=== PATIENT | male | born 1950 | race Caucasian/White ===

== ENCOUNTER 2020-07-05 02:43 | Emergency (ER) | payer MEDICARE ==
[~2020-07-05] VITALS: Ht 175.3 cm; Wt 89.8 kg
[~2020-07-05 02:43] MED LIST: ATEN25 PO; CEPH500 PO; HYDCHL25 PO; OXYC5 PO; ROSU5 PO
[2020-07-05 03:13] LABS: BASOPHILS ABSOLUTE AUTO 0.05 K/mm3 (0.00-0.23); BASOPHILS PERCENT AUTO 0 % (0-2); EOSINOPHILS ABSOLUTE AUTO 0.01 K/mm3 (0.00-0.68); EOSINOPHILS PERCENT AUTO 0 % (0-6); Hematocrit 45.4 % (37.0-53.0); IMMATURE GRAN ABSOLUTE AUTO 0.07 K/mm3 (0.00-0.10); IMMATURE GRAN PERCENT AUTO 0 % (0-1); LYMPHOCYTES ABSOLUTE AUTO 1.59 K/mm3 (0.84-5.20); LYMPHOCYTES PERCENT AUTO 10 % (21-46); MONOCYTES ABSOLUTE AUTO 0.76 K/mm3 (0.16-1.47); MONOCYTES PERCENT AUTO 5 % (4-13); Mean Corpuscular Volume 91 fL (80-100); Mean Platelet Volume 11.2 fL (9.1-12.4); NEUTROPHILS ABSOLUTE AUTO 13.24 K/mm3 (1.96-9.15); NEUTROPHILS PERCENT AUTO 84 % (41-73); Platelet Count 241 K/mm3 (150-400); RDW Coefficient Variation 14.6 % (11.7-14.2); RDW Standard Deviation 48.8 fL (35.1-46.3); White Blood Cell Count 15.72 K/mm3 (4.00-11.30)
[2020-07-05] MEDS ORDERED: Aspir 8181 MG PO (03:31)
[2020-07-05] MEDS ORDERED: ATOR20 PO (03:31)
[2020-07-05] MEDS ORDERED: TELMISARTAN-HC1 EAC4 PO (03:32)
[2020-07-05] MEDS ORDERED: ALLO300 PO (03:32)
[2020-07-05] MEDS ORDERED: Isosorbide Mono30 MG PO (03:32)
[2020-07-05] MEDS ORDERED: OMEP20ER PO (03:32)
[2020-07-05] MEDS ORDERED: NEBI5 PO (03:33)
[2020-07-05] MEDS ORDERED: Vitamin B-121000 MCG PO (03:33)
[2020-07-05 03:34] LABS: Albumin, Blood 4.1 g/dL (3.4-5.0); Albumin/Globulin Ratio 1.2 (0.8-1.8); Bilirubin, Total 0.4 mg/dL (0.1-1.0); Bun/Creatinine Ratio 16.5 (12.0-20.0); Calcium, Blood 9.8 mg/dL (8.5-10.1); Creatinine, Blood 1.7 mg/dL (0.60-1.20); Globulin, Blood 3.3 g/dL (2.2-4.0); Potassium, Blood 4.5 mmol/L (3.5-5.5); Total Protein, Blood 7.4 g/dL (6.4-8.2)
[2020-07-05 04:44] LABS: Source, Urine Clean Catch
[2020-07-05 04:47] LABS: Bilirubin, Urine Neg (Neg); Blood, Urine 5+ (Neg); Glucose Qualitative, Urine Neg (Neg); Ketones, Urine 2+ (Neg); Leukocyte Esterase, Urine Neg (Neg); Nitrite, Urine Neg (Neg); Protein, Urine 1+ (Neg); Urobilinogen, Urine NORM (Normal)
[2020-07-05 04:50] LABS: Appearance, Urine Clear (Clear); Color, Urine Yellow (P-Yellow)
[2020-07-05 04:53] LABS: White Blood Cells, Urine 0-2 /hpf (0-5)
[2020-07-05 04:54] LABS: Bacteria Few /hpf; Squamous Epithelial Cells Not Seen /hpf (Few)
[2020-07-05] MEDS ORDERED: TAMS.4ER PO (05:00)
[2020-07-05] MEDS ORDERED: OXYACE7.5T PO (05:00)
[2020-07-05] MEDS ORDERED: CEPH500 PO (05:02)
== END 2020-07-05 05:20 | disposition home or self-care (01) ==
LOC: ER 02:43
PROVIDERS: Emergency Medicine
DX: N13.2 Hydronephrosis with renal and ureteral calculous obstruction (principal)
CPT/HCPCS: 36415; 74177; 80053; 81001; 83690; 85025; 96361; 96374-59; 96375; 99284-25; A9270; J2405; J3010; J7030; Q9967